=== PATIENT | female | born 1990 | race Caucasian/White ===

== ENCOUNTER 2016-08-23 08:00 | Emergency (ER) | payer OTHER, BC ==
[2016-08-23 08:10] VITALS: TEMP 97.2
[2016-08-23 09:37] LABS: APPEARANCE,URINE Cloudy; BILIRUBIN,URINE NEGATIVE (NEGATIVE); COLOR,URINE Yellow; GLUCOSE, URINE (UA) NEGATIVE (NEGATIVE); KETONES,URINE NEGATIVE (NEGATIVE); LEUKOCYTE ESTERASE ,URINE NEGATIVE (NEGATIVE); NITRATE,URINE NEGATIVE (NEGATIVE); OCCULT BLOOD,URINE 3+ (NEG-TRACE); UROBILINOGEN,URINE 0.2 (0.2-1.0 EU)
[2016-08-23 09:51] LABS: RBC,URINE 60-70 (0-3AV/HPF); WBC,URINE 0-3 (0-5AV/HPF)
[2016-08-23] MEDS ORDERED: NIFEDIPINE 10 MG SGL PO PRN (10:02)
[2016-08-23] MEDS ORDERED: BETAMETHASONE 6 MG/ML SUS IM PRN (10:07)
[2016-08-23] MEDS ORDERED: BETAMETHASONE 6 MG/ML SUS ONE (10:11)
[2016-08-23 10:12] LABS: BASOPHILS % (AUTO) 0 % (0-3); EOSINOPHILS % (AUTO) 0 % (0-9); HEMATOCRIT 34 % (35-47); MEAN CORPUSCULAR VOLUME 85 fL (81-99); NEUTROPHILS % (AUTO) 71.7 % (37-80)
[2016-08-23] MEDS ORDERED: NIFEDIPINE 10 MG SGL PO ONE (10:12)
[2016-08-23] MEDS ORDERED: [UNRECOGNIZED DRUG - OTHER] IV SCH (10:15)
[2016-08-23] MEDS ORDERED: CEFAZOLIN SODIUM 1 GM PDS 2 GM in SODIUM CHLORIDE 0.9% 100 ML 100 ML IV ONE (10:30)
[2016-08-23] MEDS ORDERED: AMPICILLIN 1 GM PDS ONE (10:31)
[2016-08-23 10:37] LABS: ANISOCYTOSIS SLIGHT
[2016-08-23 11:00] VITALS: BP 117/63; PULSE 84; RESP 18; O2SAT 99
== END 2016-08-23 10:45 | disposition short-term general hospital (02) | DRG 778 ==
LOC: ED 08:00
DX: O60.03 Preterm labor without delivery, third trimester (principal); O99.820 Streptococcus B carrier state complicating pregnancy; Z3A.32 32 weeks gestation of pregnancy
CPT/HCPCS: 36415; 59025; 81001; 85025; 96372; 99284; 99291; J0290; J0702